=== PATIENT | male | born 1990 | race African-American/Black ===

== ENCOUNTER 2019-11-04 12:03 | Emergency (ER) | payer SELFPAY ==
--- NOTE | 2019-11-04 12:42 | RAD ---
EXAM: 4 views of the right elbow HISTORY: Elbow pain after crush injury COMPARISON: None FINDINGS: No elbow effusion is seen. There is no evidence of acute fracture or dislocation. No signi ficant degenerative changes are seen. Mild posterior soft tissue swelling is present. Radiopaque material is seen on the skin surface. IMPRESSION: No evidence of acute osseous abnormality.
--- NOTE | 2019-11-04 12:42 | RAD ---
EXAM: 4 views of the left elbow HISTORY: Elbow pain COMPARISON: None FINDINGS: No elbow effusion is seen. There is no evidence of acute fracture or dislocation. No signi ficant degenerative changes are seen. No soft tissue swelling is present. IMPRESSION: No evidence of acute osseous abnormality.
--- NOTE | 2019-11-04 12:43 | RAD ---
Exam: Single view of the pelvis HISTORY: Pelvic and hip pain COMPARISON: None FINDINGS: A single view the pelvis shows no evidence of acute fracture or dislocation. No degenerativ e changes seen in either hip. A radiopaque foreign body projects over the proximal right femur which may be in the patient's pocket. IMPRESSION: No evidence of acute osseous abnormality.
[2019-11-04 12:44] LABS: #Basophils 0.1 thou/uL (0.0-0.2); #Eosinphils 0.2 thou/uL (0.0-0.7); #Lymphocytes 2.1 thou/uL (1.20-3.40); #Monocytes 0.8 thou/uL (0.11-0.59); #Neutrophils 8.5 thou/uL (1.40-6.50); %Basophils 0.5 % (0.0-1.0); %Lymphocytes 17.7 % (21.0-51.0); %Neutrophils 72.8 % (42.0-75.0); Hemoglobin 15.3 g/dL (14.0-18.0); Mean Corpuscular HGB CONC 32.6 g/dL (32.0-36.0); Mean Corpuscular Hemoglobin 32.1 pg (27.0-31.0); Mean Corpuscular Volume 98.5 fL (78.0-98.0); Mean Platelet Volume 8.7 fL (7.4-10.4); Platelet Count 212 thou/uL (130-400); Red Blood Cell (RBC) Count 4.78 mill/uL (4.70-6.10); White Blood Cell (WBC) Count 11.7 thou/uL (4.8-10.8)
--- NOTE | 2019-11-04 12:57 | CT ---
CT THORAX WITH CONTRAST CT ABDOMEN WITH CONTRAST CT PELVIS WITH CONTRAST CT THORACIC SPINE WITH CONTRAST CT LUMBAR SPINE WITH CONTRAST: (Trauma protocol) DATE: 11/04/2019 HISTORY: Trauma to the chest, abdomen, and pelvis. 29-year-old male status post crush injury. Dr. Rondon gave verbal report to Dr. Berry of the ER at 12:54 PM 11/04/2019 TECHNIQUE: IV administration of iodinated contrast media. No oral contrast media. Single phase scans of thorax, abdomen, and pelvis. Sagittal reconstructions of thoracic and lumbar spine. FINDINGS: Lungs: No contusion. Pleura: No pneumothorax or hemothorax. Thoracic aorta: No dissection or rupture. Mediastinum: No hematoma. Abdomen and pelvis: Liver: No laceration Spleen: No laceration Pancreas: No surrounding fluid or fat stranding. Kidneys: No hydronephrosis or laceration. Bladder: No gross evidence of rupture. Abdominal aorta: No dissection or rupture. Small bowel: No dilation. Colon: No adjacent fat stranding. Free air: None. Free fluid: None. Skeleton: Ribs: No grossly displaced acute fracture. Sternum: No grossly displaced acute fracture. Thoracic spine: No acute compression fracture. Lumbar spine: No acute compression fracture. There are markedly laterally displaced distal fracture f ragments of the left transverse processes of L2, L3, and L4. There is associated muscle hematoma involving the left psoas muscle. Pelvis: No grossly displaced acute fracture. No dislocation. IMPRESSION: 1. Acute, traumatic, significantly displaced fractures of the left transverse processes of lumbar spi ne levels L2, L3, and L4. 2. No other evidence of acute traumatic injury within the thorax, abdomen, or pelvis.
--- NOTE | 2019-11-04 13:13 | RAD ---
Radiograph left forearm 2 views: 11/04/2019 HISTORY: 29-year-old male status post acute traumatic crush injury to forearm FINDINGS: No fracture of radius or ulna. IMPRESSION: Negative
[2019-11-04 13:30] LABS: ALT (SGPT) 29 U/L (8-55); AST (SGOT) 37 U/L (5-34); Albumin 4.3 g/dL (3.5-5.0); Alkaline Phosphatase 62 U/L (40-110); Anion Gap 12 mmol/L (10-20); BUN (Urea Nitrogen) 11 mg/dL (8.9-20.6); Bilirubin, Total 0.5 mg/dL (0.2-1.2); Calc. Creatinine Clearance 0 mL/min (70-130); Calcium 8.7 mg/dL (7.8-10.44); Carbon Dioxide 24 mmol/L (22-29); Chloride 103 mmol/L (98-107); Estimated GFR-MDRD Greater than 90; Globulin 2.8 g/dL (2.4-3.5); Glucose 94 mg/dL (70-105); Lipase 111 U/L (8-78); Protein, Total 7.1 g/dL (6.0-8.3); Sodium 135 mmol/L (136-145)
[2019-11-04] MEDS ORDERED: Iopamidol-370 76% 500 ML 1 ML ONE (13:31)
[2019-11-04 13:38] LABS: Bilirubin Negative (Negative); Blood, Urine Negative (Negative); Clarity Clear (Clear); Glucose, Urine (Dipstick) Normal (Negative); Ketone, Urine Negative (Negative); Leukocyte Negative Leu/uL (Negative); Nitrite Negative (Negative); Protein, Urine (Dipstick) Negative (Neg-Trace); Specific Gravity, Urine 1.029 (1.002-1.036); Urobilinogen Normal mg/dL (Less than 2)
--- NOTE | 2019-11-04 13:40 | RAD ---
PORTABLE CHEST 1 VIEW: Date: 11/04/2019 Time: 1206 hours HISTORY: Injury, chest pain. FINDINGS/IMPRESSION: The heart size is normal. The lungs are expanded without focal areas of consolidation, pneumothoraces , or pleural effusions. POS: OFF
[2019-11-04] MEDS ORDERED: Ketorolac Tromethamine 30 MG/ML VIAL ONE (14:25)
== END 2019-11-04 14:41 | disposition home or self-care (01) ==
LOC: ERS 12:03
DX: S32.029A Unspecified fracture of second lumbar vertebra, initial encounter for closed fracture (principal); S32.039A Unspecified fracture of third lumbar vertebra, initial encounter for closed fracture; S32.049A Unspecified fracture of fourth lumbar vertebra, initial encounter for closed fracture; S50.312A Abrasion of left elbow, initial encounter; S50.311A Abrasion of right elbow, initial encounter; S30.810A Abrasion of lower back and pelvis, initial encounter; V59.9XXA Occupant (driver) (passenger) of pick-up truck or van injured in unspecified traffic accident, initial encounter
CPT/HCPCS: 36415; 71045; 71260; 72170; 74177; 80053; 81003; 83605; 83690; 85025; 86850; 86900; 86901; 93005; 96374; G0390; J1885; Q9967